=== PATIENT | male | born 1995 | race Caucasian/White ===

== ENCOUNTER 2017-09-14 07:21 | Observation (INO) | payer MEDICAID, OTHER ==
[2017-09-14] MEDS ORDERED: NS 1,000 ML IV ONE ×2 (08:09→10:10)
[2017-09-14] MEDS ORDERED: KETOROLAC 30 MG/1 ML SDV IVP ONE (08:09)
[2017-09-14] MEDS ORDERED: METOCLOPRAMIDE 10 MG/2 ML VIAL IVP ONE (08:09)
--- NOTE | 2017-09-14 08:14 | EDPHY ---
H & P Stated Complaint: abdominal pain Time Seen by Provider: 09/14/17 07:35 HPI/ROS: CHIEF COMPLAINT: Abdominal pain History by patient HISTORY OF PRESENT ILLNESS: 21-year-old boy presents complaining of severe upper abdominal pain which he describes as fullness or tightness in his epigastrium as if he is about to vomit but he cannot make himself vomit. It radiates into his back. It is not associated with any diarrhea. His last bowel movement was yesterday and was normal. He has no constipation. He denies any blood in his stool and states that he has stool has been tested in the past. He also had AH pylori test in the past which was negative. He belches but this does not seem to relieve the pain. There has been no associated fever. Symptoms seem to be worsened by eating and he can only tolerate a very bland diet and he cannot drink any carbonated beverages or eating any spicy food without exacerbating the pain. The pain is also worsened by motion or riding in the car or lying flat. He has had some version of the symptoms ongoing for over a year. He was treated with a course of antacids for several months by his PCP and his symptoms seemed to angela somewhat around April, 5 months ago, however last night the became severe again shortly after eating some cookies and drinking some milk. He tried taking Tums and this seemed to make it worse. He denies any testicular pain or penile discharge. Pain does not radiate into his groin. He denies any dysuria, urgency frequency or hematuria. Since the onset of the symptoms over a year ago the patient has drastically changed his diet and he can only eat a very bland foods. He has lost over 70 lb. Initially he thought this was related to change in diet and working in the produce section of a grocery store however he has not worked in about 5 months and he continues to lose weight. He is 1 class short of finishing high school. He denies any alcohol or marijuana use. He denies any street drug use. He does not smoke cigarettes. He says he has tried marijuana but this does not seem to help his pain. His mother has a history of kidney stones. REVIEW OF SYSTEMS: As in HPI, and all other systems reviewed and are negative Source: Patient, Family - Medical/Surgical History Other PMH: genetic kidney DX. IGA nephropathy, intermitant stomach pain since 2016. - Social History Smoking Status: Never smoked - Physical Exam Exam: General Appearance: Alert, pacing, somewhat uncomfortable appearing. Eyes: Pupils equal and round, extraocular movements intact, no pallor or injection. Mouth: Mucous membranes moist. Pharynx clear Respiratory: Normal, effort, lungs are clear to auscultation. No wheezes, rales or rhonchi. Cardiovascular: Regular rate and rhythm. S1, S2, no murmurs, gallops or rubs appreciated Gastrointestinal: bowel sounds decreased but present, Abdomen is soft and mildly diffusely tender, no masses Back: No CVA tenderness, no bony tenderness Neurological: Awake, alert and oriented x 3, no pronator drift, normal gait, no pronator drift Skin: Warm and dry, no rashes. Musculoskeletal: No deformities or tenderness. Extremities: full range of motion, no edema Psychiatric: Patient has normal affect, there is no agitation. Constitutional: Initial Vital Signs Temperature (C) 36.4 C 09/14/17 07:27 Heart Rate 105 H 09/14/17 07:27 Respiratory Rate 20 09/14/17 07:27 Blood Pressure 121/79 H 09/14/17 07:27 O2 Sat (%) 96 09/14/17 07:27 O2 Delivery Mode Room Air Allergies/Adverse Reactions: No Known Allergies Allergy (Unverified 09/14/17 07:33) Home Medications: Medication Instructions Recorded NK [No Known Home Meds] 09/14/17 Medical Decision Making - Diagnostics Imaging Results: Imaging Impressions Abdomen CT 09/14/17 08:42 Impression: Trace pericholecystic fluid. There is no bile duct dilatation. If there is further clinical concern regarding occult cholelithiasis, dedicated gallbladder sonography could be considered. Findings were discussed with Amanda Bowling MD at 9:39, on 09/14/2017. Abdomen Ultrasound 09/14/17 09:43 Impression: Cholelithiasis and secondary features consistent with acute cholecystitis, with no bile duct dilatation. Findings were discussed with Amanda Bowling MD at 11:51, on 09/14/2017. ED Course/Re-evaluation: 21-year-old boy presents with chronic abdominal pain related to eating and weight loss over the past year with some tenderness on exam. Patient was given IV fluids, Toradol, Reglan and Benadryl with improvement in his symptoms although he continued to remain diffusely tender on exam. Initial labs revealed a white count of 18.5. The rest of his blood work was unremarkable including normal lipase and LFTs. Given his symptoms and elevated white blood cell count and tachycardia I was concerned about significant intra abdominal infection or perforation therefore CT scan of the abdomen was obtained. CT revealed normal appendix and a small amount of fluid around the gallbladder. Radiologist recommended ultrasound. Ultrasound was performed which revealed multiple gallstones and evidence of acute cholecystitis. Patient was started on IV Unasyn. I discussed the case with Dr. Mitchell, [facility] who accepts the patient in transfer for admission at [facility]. I discussed with patient his father. They prefer to go by private car. - Data Points Laboratory Results: Laboratory Results 09/14/17 08:15 09/14/17 08:15 09/14/17 09/14/17 09/14/17 08:37 08:30 08:15 WBC RBC Hgb Hct MCV MCH MCHC RDW Plt Count MPV Neut % (Auto) Lymph % (Auto) [place] % (Auto) Eos % (Auto) Baso % (Auto) Nucleat RBC Rel Count Absolute Neuts (auto) Absolute Lymphs (auto) Absolute Monos (auto) Absolute Eos (auto) Absolute Basos (auto) Absolute Nucleated RBC Immature Gran % Immature Gran # Sodium 144 mEq/L mEq/L (135-145) Potassium 3.4 mEq/L L mEq/L (3.5-5.2) Chloride 102 mEq/L mEq/L (97-110) Carbon Dioxide 22 mEq/l mEq/l (22-31) Anion Gap 20 mEq/L H mEq/L (8-16) BUN 9 mg/dL mg/dL (7-23) Creatinine 0.8 mg/dL mg/dL (0.7-1.3) Estimated GFR > 60 Glucose 111 mg/dL H mg/dL (70-100) Calcium 10.5 mg/dL H mg/dL (8.5-10.4) Total Bilirubin 1.1 mg/dL mg/dL (0.1-1.4) Conjugated Bilirubin 0.4 mg/dL mg/dL (0.0-0.5) Unconjugated Bilirubin 0.7 mg/dL mg/dL (0.0-1.1) AST 31 IU/L IU/L (17-59) ALT 43 IU/L IU/L (21-72) Alkaline Phosphatase 75 IU/L IU/L (38-126) Total Protein 8.5 g/dL H g/dL (6.3-8.2) Albumin 4.8 g/dL g/dL (3.5-5.0) Lipase 94 IU/L IU/L (23-300) Urine Color YELLOW Urine Appearance CLEAR Urine pH 6.0 (5.0-7.5) Ur Specific [place] 1.025 (1.002-1.030) Urine Protein NEGATIVE (NEGATIVE) Urine Ketones 2+ H (NEGATIVE) Urine Blood TRACE H (NEGATIVE) Urine Nitrate NEGATIVE (NEGATIVE) Urine Bilirubin NEGATIVE (NEGATIVE) Urine Urobilinogen 0.2 EU EU (0.2-1.0) Ur Leukocyte Esterase NEGATIVE (NEGATIVE) Urine RBC 5-10 /hpf H /hpf (0-3) Urine WBC 3-5 /hpf H /hpf (0-3) Ur Epithelial Cells TRACE /lpf /lpf (NONE-1+) Amorphous Sediment 1+ /hpf /hpf (NONE-1+) Urine Bacteria 1+ /hpf H /hpf (NONE SEEN) Hyaline Casts 0-1 /lpf /lpf (0-1) Urine Mucus 3+ /lpf H /lpf (NONE-1+) Urine Yeast TRACE /hpf H /hpf (NONE SEEN) Urine Glucose NEGATIVE (NEGATIVE) C.trachomatis RNA (TMA) Pending N.gonorrhoeae RNA (TMA) Pending 09/14/17 08:15 WBC 18.50 10^3/uL H 10^3/uL (3.80-9.50) RBC 5.32 10^6/uL 10^6/uL (4.40-6.38) Hgb 16.7 g/dL g/dL (13.7-17.5) Hct 46.9 % % (40.0-51.0) MCV 88.2 fL fL (81.5-99.8) MCH 31.4 pg pg (27.9-34.1) MCHC 35.6 g/dL g/dL (32.4-36.7) RDW 11.9 % % (11.5-15.2) Plt Count 282 10^3/uL 10^3/uL (150-400) MPV 9.8 fL fL (8.7-11.7) Neut % (Auto) 85.5 % H % (39.3-74.2) Lymph % (Auto) 9.5 % L % (15.0-45.0) [place] % (Auto) 4.3 % L % (4.5-13.0) Eos % (Auto) 0.1 % L % (0.6-7.6) Baso % (Auto) 0.2 % L % (0.3-1.7) Nucleat RBC Rel Count 0.0 % % (0.0-0.2) Absolute Neuts (auto) 15.80 10^3/uL H 10^3/uL (1.70-6.50) Absolute Lymphs (auto) 1.76 10^3/uL 10^3/uL (1.00-3.00) Absolute Monos (auto) 0.80 10^3/uL 10^3/uL (0.30-0.80) Absolute Eos (auto) 0.02 10^3/uL L 10^3/uL (0.03-0.40) Absolute Basos (auto) 0.04 10^3/uL 10^3/uL (0.02-0.10) Absolute Nucleated RBC 0.00 10^3/uL 10^3/uL (0-0.01) Immature Gran % 0.4 % % (0.0-1.1) Immature Gran # 0.08 10^3/uL 10^3/uL (0.00-0.10) Sodium Potassium Chloride Carbon Dioxide Anion Gap BUN Creatinine Estimated GFR Glucose Calcium Total Bilirubin Conjugated Bilirubin Unconjugated Bilirubin AST ALT Alkaline Phosphatase Total Protein Albumin Lipase Urine Color Urine Appearance Urine pH Ur Specific [place] Urine Protein Urine Ketones Urine Blood Urine Nitrate Urine Bilirubin Urine Urobilinogen Ur Leukocyte Esterase Urine RBC Urine WBC Ur Epithelial Cells Amorphous Sediment Urine Bacteria Hyaline Casts Urine Mucus Urine Yeast Urine Glucose C.trachomatis RNA (TMA) N.gonorrhoeae RNA (TMA) Medications Given: Discontinued Medications Diphenhydramine HCl (Benadryl Injection) 25 mg IVP EDNOW ONE Stop: 09/14/17 08:11 Last Admin: 09/14/17 08:28 Dose: 25 mg Sodium Chloride (Ns) 1,000 mls @ 0 mls/hr IV EDNOW ONE; Wide Open PRN Reason: Protocol Stop: 09/14/17 08:10 Last Admin: 09/14/17 08:25 Dose: 1,000 mls Sodium Chloride (Ns) 1,000 mls @ 0 mls/hr IV ONCE ONE PRN Reason: Wide Open Stop: 09/14/17 10:11 Last Admin: 09/14/17 10:11 Dose: 1,000 mls Ketorolac Tromethamine (Toradol) 15 mg IVP EDNOW ONE Stop: 09/14/17 08:10 Last Admin: 09/14/17 08:29 Dose: 15 mg Metoclopramide HCl (Reglan Injection) 10 mg IVP EDNOW ONE Stop: 09/14/17 08:10 Last Admin: 09/14/17 08:30 Dose: 10 mg Departure - Departure Disposition: [facility] Inpatient Acute Clinical Impression: Acute cholecystitis Condition: Fair Additional Instructions: Go directly to [facility] for direct admission to Dr. Allan Referrals: NONE *PRIMARY CARE P,. [Primary Care Provider] - As per Instructions
[2017-09-14 08:19] LABS: PLATELET COUNT 282 10^3/uL (150-400)
[2017-09-14] MEDS ORDERED: IOPAMIDOL (ISOVUE-300) 100 ML BTL ONE (08:56)
[2017-09-14] MEDS ORDERED: AMPICILLIN/SULBACTAM 3 GM in NS 100 ML IV ONE (11:53)
[2017-09-14] MEDS ORDERED: ZOLPIDEM TARTRATE 5 MG TAB PO PRN (15:19)
[2017-09-14] MEDS ORDERED: METOCLOPRAMIDE 10 MG/2 ML VIAL IVP PRN (15:19)
--- NOTE | 2017-09-14 15:24 | PDGENHP ---
History and Physical - Chief Complaint Abdominal pain - History of Present Illness This is a 21-year-old gentleman with 1 year history of recurrent postprandial abdominal pain. The patient has excessive irritation nausea and occasionally vomiting. He denies any significant biliary colic today but has had some in the past. The patient has had a low-fat diet for quite some time and lost 50 lb as a result. Family history significant for a sister and mother having cholecystitis with cholecystectomies. Patient has a history of IgA nephropathy otherwise has no medications no known drug allergies and no previous surgeries. His father was present for his interview and exam. Ultrasound at outpatient emergency room demonstrates cholelithiasis with impacted stones, leukocytosis of 18,000, carrie cholecystic fluid. CT scan also performed show similar findings. He has received Unasyn 3 g IV prior to arrival and is hemodynamically stable at this time History Information - Allergies/Home Medication List Allergies/Adverse Reactions: No Known Allergies Allergy (Unverified 09/14/17 07:33) Home Medications: NK [No Known Home Meds] 09/14/17 [Last Taken Unknown] I have personally reviewed and updated: family history, medical history, surgical history - Past Medical History Additional medical history: IgA nephropathy - Surgical History Reports: no pertinent surgical hx - Family History Additional family history: Hypertension in paternal grandparents. - Social History Smoking Status: Never smoked Alcohol Use: None Review of Systems Review of Systems: ROS: 10pt was reviewed & negative except for what was stated in HPI & below Constitutional: Reports: malaise, weight loss (50 lb in the last 1 year) EENMT: Reports: no symptoms Cardiac: Reports: no symptoms Respiratory: Reports: no symptoms Gastrointestinal: Reports: vomitting, abdominal pain, nausea Genitourinary: Reports: no symptoms Physical Exam Physical Exam: Alert oriented to person place and time Pupils 4 mm reactive. No scleral icterus Oropharynx moist without lesions good dentition Trachea midline no JVD No cervical or supraclavicular adenopathy Lungs clear bilaterally Heart regular rate and rhythm no murmurs Abdomen soft tender in the mid abdomen going to the right upper quadrant no scars no hepatosplenomegaly 2+ over 2+ 2+ radial and dorsalis pedis pulses Normal skin turgor and tone no rashes Normal affect Temp Pulse Resp BP Pulse Ox 36.6 C 90 16 108/60 97 09/14/17 15:16 09/14/17 15:16 09/14/17 15:16 09/14/17 15:16 09/14/17 15:16 Lab Data & Imaging Review 09/14/17 08:15 09/14/17 08:15 WBC 18.50 10^3/uL (3.80-9.50) H 09/14/17 08:15 RBC 5.32 10^6/uL (4.40-6.38) 09/14/17 08:15 Hgb 16.7 g/dL (13.7-17.5) 09/14/17 08:15 Hct 46.9 % (40.0-51.0) 09/14/17 08:15 MCV 88.2 fL (81.5-99.8) 09/14/17 08:15 MCH 31.4 pg (27.9-34.1) 09/14/17 08:15 MCHC 35.6 g/dL (32.4-36.7) 09/14/17 08:15 RDW 11.9 % (11.5-15.2) 09/14/17 08:15 Plt Count 282 10^3/uL (150-400) 09/14/17 08:15 MPV 9.8 fL (8.7-11.7) 09/14/17 08:15 Neut % (Auto) 85.5 % (39.3-74.2) H 09/14/17 08:15 Lymph % (Auto) 9.5 % (15.0-45.0) L 09/14/17 08:15 [place] % (Auto) 4.3 % (4.5-13.0) L 09/14/17 08:15 Eos % (Auto) 0.1 % (0.6-7.6) L 09/14/17 08:15 Baso % (Auto) 0.2 % (0.3-1.7) L 09/14/17 08:15 Nucleat RBC Rel Count 0.0 % (0.0-0.2) 09/14/17 08:15 Absolute Neuts (auto) 15.80 10^3/uL (1.70-6.50) H 09/14/17 08:15 Absolute Lymphs (auto) 1.76 10^3/uL (1.00-3.00) 09/14/17 08:15 Absolute Monos (auto) 0.80 10^3/uL (0.30-0.80) 09/14/17 08:15 Absolute Eos (auto) 0.02 10^3/uL (0.03-0.40) L 09/14/17 08:15 Absolute Basos (auto) 0.04 10^3/uL (0.02-0.10) 09/14/17 08:15 Absolute Nucleated RBC 0.00 10^3/uL (0-0.01) 09/14/17 08:15 Immature Gran % 0.4 % (0.0-1.1) 09/14/17 08:15 Immature Gran # 0.08 10^3/uL (0.00-0.10) 09/14/17 08:15 Sodium 144 mEq/L (135-145) 09/14/17 08:15 Potassium 3.4 mEq/L (3.5-5.2) L 09/14/17 08:15 Chloride 102 mEq/L (97-110) 09/14/17 08:15 Carbon Dioxide 22 mEq/l (22-31) 09/14/17 08:15 Anion Gap 20 mEq/L (8-16) H 09/14/17 08:15 BUN 9 mg/dL (7-23) 09/14/17 08:15 Creatinine 0.8 mg/dL (0.7-1.3) 09/14/17 08:15 Estimated GFR > 60 09/14/17 08:15 Glucose 111 mg/dL (70-100) H 09/14/17 08:15 Calcium 10.5 mg/dL (8.5-10.4) H 09/14/17 08:15 Total Bilirubin 1.1 mg/dL (0.1-1.4) 09/14/17 08:15 Conjugated Bilirubin 0.4 mg/dL (0.0-0.5) 09/14/17 08:15 Unconjugated Bilirubin 0.7 mg/dL (0.0-1.1) 09/14/17 08:15 AST 31 IU/L (17-59) 09/14/17 08:15 ALT 43 IU/L (21-72) 09/14/17 08:15 Alkaline Phosphatase 75 IU/L (38-126) 09/14/17 08:15 Total Protein 8.5 g/dL (6.3-8.2) H 09/14/17 08:15 Albumin 4.8 g/dL (3.5-5.0) 09/14/17 08:15 Lipase 94 IU/L (23-300) 09/14/17 08:15 Urine Color YELLOW 09/14/17 08:37 Urine Appearance CLEAR 09/14/17 08:37 Urine pH 6.0 (5.0-7.5) 09/14/17 08:37 Ur Specific [place] 1.025 (1.002-1.030) 09/14/17 08:37 Urine Protein NEGATIVE (NEGATIVE) 09/14/17 08:37 Urine Ketones 2+ (NEGATIVE) H 09/14/17 08:37 Urine Blood TRACE (NEGATIVE) H 09/14/17 08:37 Urine Nitrate NEGATIVE (NEGATIVE) 09/14/17 08:37 Urine Bilirubin NEGATIVE (NEGATIVE) 09/14/17 08:37 Urine Urobilinogen 0.2 EU (0.2-1.0) 09/14/17 08:37 Ur Leukocyte Esterase NEGATIVE (NEGATIVE) 09/14/17 08:37 Urine RBC 5-10 /hpf (0-3) H 09/14/17 08:37 Urine WBC 3-5 /hpf (0-3) H 09/14/17 08:37 Ur Epithelial Cells TRACE /lpf (NONE-1+) 09/14/17 08:37 Amorphous Sediment 1+ /hpf (NONE-1+) 09/14/17 08:37 Urine Bacteria 1+ /hpf (NONE SEEN) H 09/14/17 08:37 Hyaline Casts 0-1 /lpf (0-1) 09/14/17 08:37 Urine Mucus 3+ /lpf (NONE-1+) H 09/14/17 08:37 Urine Yeast TRACE /hpf (NONE SEEN) H 09/14/17 08:37 Urine Glucose NEGATIVE (NEGATIVE) 09/14/17 08:37 Imaging Review: Images personally reviewed on [facility] PACS system agree with findings of acute cholecystitis Imaging Impressions Abdomen CT 09/14/17 08:42 Impression: Trace pericholecystic fluid. There is no bile duct dilatation. If there is further clinical concern regarding occult cholelithiasis, dedicated gallbladder sonography could be considered. Findings were discussed with Amanda Bowling MD at 9:39, on 09/14/2017. Abdomen Ultrasound 09/14/17 09:43 Impression: Cholelithiasis and secondary features consistent with acute cholecystitis, with no bile duct dilatation. Findings were discussed with Amanda Bowling MD at 11:51, on 09/14/2017. Assessment & Plan Assessment: Acute cholecystitis (Acute) Plan: Laparoscopic cholecystectomy. The risks benefits and alternatives have been outlined to the patient and his father. All questions were addressed. Verbal confirmation of understanding of concerns and risks and benefits of surgery prior to written consent. Plan on surgery later on this evening. No need for repeat antibiotics unless purulence noted intraoperatively. Anticipate discharge in 24 hr.
[2017-09-14] MEDS ORDERED: LR 1,000 ML IV SCH (15:30)
--- NOTE | 2017-09-14 17:47 | PDANEPAE ---
ANE Past Medical History - Pulmonary History Hx Sleep Apnea: No Sleep Apnea Screening Result - Last Documented: Negative - Endocrine History Hx Diabetes: No - Chronic Pain History Chronic Pain: Yes ANE Review of Systems Review of Systems: ANE Patient History - Allergies Allergies/Adverse Reactions: No Known Allergies Allergy (Unverified 09/14/17 07:33) - Home Medications Home Medications: NK [No Known Home Meds] 09/14/17 [Last Taken Unknown] - NPO status NPO Since - Liquids (Date): 09/14/17 NPO Since - Liquids (Time): 04:00 NPO Since - Solids (Date): 09/13/17 NPO Since - Solids (Time): 12:00 - Smoking Hx Smoking Status: Never smoked - Alcohol Use Alcohol Use: None ANE Labs/Vital Signs - Labs Result Diagrams: 09/14/17 08:15 09/14/17 08:15 - Vital Signs Blood Pressure: 108/60 Heart Rate: 90 Respiratory Rate: 16 O2 Sat (%): 97 Height: 177.8 cm Weight: 70.4 kg ANE Physical Exam - Airway Neck exam: FROM Mallampati Score: Class 2 Mouth exam: normal dental/mouth exam - Pulmonary Pulmonary: no respiratory distress - Cardiovascular Cardiovascular: regular rate and rhythym - ASA Status ASA Status: II ANE Anesthesia Plan Anesthesia Plan: general endotracheal anesthesia
[2017-09-14] MEDS ORDERED: fentaNYL 250 MCG/5 ML INJ ONE (17:51)
[2017-09-14] MEDS ORDERED: METOCLOPRAMIDE 10 MG/2 ML VIAL ONE (17:52)
[2017-09-14] MEDS ORDERED: LIDOCAINE 2% 100 MG/5 ML SYR ONE (17:52)
[2017-09-14] MEDS ORDERED: DEXAMETHASONE 4 MG/ML VIAL ONE ×2 (17:52)
[2017-09-14] MEDS ORDERED: PROPOFOL 200 MG/20 ML VIAL ONE (17:52)
[2017-09-14] MEDS ORDERED: ROCURONIUM 50 MG/5 ML VIAL ONE (17:52)
[2017-09-14] MEDS ORDERED: LIDOCAINE 1% 300 MG/30 ML SDV ONE (17:57)
[2017-09-14] MEDS ORDERED: BUPIVACAINE 0.5% 30 ML SDV ONE (17:57)
--- NOTE | 2017-09-14 19:01 | POSTOPPROG ---
Post Op Note Date of Operation: 09/14/17 Surgeon: Lobito Allan Clock Maker: Rosalina SYED Anesthesiologist: Kristal Hall Anesthesia: GET(General Endotracheal) Pre-op Diagnosis: Acute cholecystitis Post-op Diagnosis: same Procedure: Laparoscopic cholecystectomy Findings: acutely inflammed gallbladder Inf/Abcess present in the surg proc area at time of surgery?: Yes Depth: Organ Space EBL: Minimal Specimen(s): gallbladder to permanent pathology
[2017-09-14] MEDS ORDERED: ONDANSETRON 4 MG/2 ML VIAL IVP PRN (19:06)
[2017-09-14] MEDS ORDERED: MEPERIDINE 25 MG/0.5 ML AMP IVP PRN (19:06)
[2017-09-14] MEDS ORDERED: NALOXONE HCL 0.4 MG/ML INJ IVP PRN (19:06)
[2017-09-14] MEDS ORDERED: fentaNYL 100 MCG/2 ML INJ IVP PRN (19:06)
[2017-09-14] MEDS ORDERED: ALBUTEROL 3 ML DEYVIAL IH PRN (19:06)
--- NOTE | 2017-09-14 19:07 | POSTANESTH ---
Post Anesthetic Evaluation Cardiovascular Status: Similar to Pre-Op Cond Respiratory Status: Similar to Pre-op Cond. Level of Consciousness/Mental Status: Mildly Sleepy, Arousable Pain Control: Adequate, Prn Tx Ordered Nausea/Vomiting Control: Adequate, Prn Tx Ordered Complications Possibly Related to Anesthesia: None Noted
[2017-09-15] MEDS: HYDROCODONE/APAP 5/325 TAB PO PRN ×2 (05:48→10:12)
--- NOTE | 2017-09-15 06:23 | GOP ---
[f rep st] OPERATIVE REPORT DATE OF OPERATION: SURGEON: Lobito Allan MD [employer] DEVELOPER: Rosalina Membreno, CONICAL MIXER ANESTHESIA: General endotracheal anesthesia. ANESTHESIOLOGIST: Terrence Hall MD PREOPERATIVE DIAGNOSIS: Acute cholecystitis. POSTOPERATIVE DIAGNOSIS: Acute cholecystitis. PROCEDURE PERFORMED: Laparoscopic cholecystectomy. FINDINGS: SPECIMENS: Gallbladder to permanent pathology. ESTIMATED BLOOD LOSS: Less than 10 mL. INDICATIONS: This is a 21-year-old gentleman who presents to the hospital with acute cholecystitis. Symptoms have been ongoing for over 1 year. The patient had ultrasound and CAT scan showing pericho lecystic fluid, inflamed gallbladder, stones in the neck with hydrops. DESCRIPTION OF PROCEDURE: The patient was brought to the operating room. After induction of endotra cheal anesthesia in supine position, the abdomen was prepped chlorhexidine and draped sterilely. Vazquez e-out procedure was then performed according to institutional standards. Local anesthetic was infuse d in skin and subcutaneous tissues of the trocar site. Local anesthetic was infused in skin and subc utaneous tissues. The abdomen was approached through supraumbilical trocar placement open. The abdo men was insufflated to 15 TOR with carbon dioxide. Working trocars were placed in the subxiphoid and right subcostal areas under direct visualization. The gallbladder was brought to the field of disse ction. The gallbladder is slightly hydropic. There was bilious fluid surrounding it and it is acute ly inflamed. Electrocautery was used to take off the perineum, clearly identifying the critical view of safety with the cystic duct and cystic artery clearly delineated in the triangle of [place]. These were triply clipped and ligated. The gallbladder was taken off the gallbladder bed using electrocau keena. Hemostasis was assured. The gallbladder was placed in a pouch and brought out through the umb ilical incision. The working trocars were removed. There was no sign of bleeding. The abdomen was deflated. The fascia was reapproximated to the level of the umbilicus and all 4 port s were approximated at the skin level using 4-0 Monocryl. Dermabond was applied. The patient awaken ed. He was extubated, taken to recovery room in stable condition. No immediate complications. COMPLICATIONS: No complications. /[id number]/MODL
[2017-09-15 07:37] VITALS: BP 100/55
--- NOTE | 2017-09-15 09:49 | ASMTCMCOM ---
CM Note CM Note Notes: 21yr old male admitted for acute cholecystitis. Hx of abdominal pain. To have surgery. No discharge needs anticipated. Date Signed: 09/15/2017 09:48 AM Electronically Signed By:Misty Cervantes LCSW
--- NOTE | 2017-09-15 12:41 | ASMTLACE ---
LACE Length of stay for Answers: 1 day current admission Acuity / Level of Answers: Yes Care: Did the patient have an inpatient admission? Comorbidities - select Answers: Other Notes: Acute cholecystitis all that apply # of Emergency department Answers: 1-2 visits in the last 6 months Score: 6 Date Signed: 09/15/2017 12:40 PM Electronically Signed By:Misty Cervantes LCSW
[2017-09-16 12:43] LABS: GC AMPLIFICATION GENPROBE NEGATIVE (NEGATIVE)
--- NOTE | 2017-09-18 01:13 | PDDCSUM ---
Discharge Summary Discharge Summary: This is a 21-year-old gentleman presents with acute cholecystitis with symptoms occurred over the last year. He has significant weight loss. Admitting and discharge diagnosis acute cholecystitis principle procedure laparoscopic cholecystectomy 09/14/2017 Allergies: No known drug allergies Home medications: None Discharge medication oxycodone and ibuprofen Hospital course the patient was brought the operating room for urgent cholecystectomy on the day of admission. He underwent uncomplicated laparoscopic procedure. Postop day 1 was tolerating diet ambulatory dependently pain was well controlled with oral analgesics and after discussion with the patient father and him he was able to be discharged with appropriate home care instructions. He was given instructions follow up my office in I-II weeks call with any questions regarding the surgery such as but not limited to signs of infection from the wound drainage redness fever, inability to eat, pain not controlled by medication.
--- NOTE | 2017-09-18 13:41 | ASDISCHSUM ---
Discharge Information Plan Status:Home with No Needs Medically Cleared to Leave:09/15/2017 Discharge Date:09/15/2017 CM D/C Disposition:Home, Routine, Self-Care ADT D/C Disposition:Home, Routine, Self-Care Projected Discharge Date:09/15/2017 01:00 PM Transportation at D/C:Family Discharge Delay Reason: Follow-Up Date:09/15/2017 01:00 PM Discharge Slot: Final Diagnosis:Acute cholecystitis Placement Information Patient Contact Information Contact Name:CHANTE Relationship:Father Address:[facility] [address] Work Phone: City:[place] Alternate Phone: [facility]/Zip Code:[place] [address] Email: Financial Information Financial Class:HMO and PPO Plans Primary Plan Desc:[facility] Primary Plan Number:[id number] Secondary Plan Desc: Secondary Plan Number: Assessment Information LACE LACE Length of stay for Answers: 1 day current admission Acuity / Level of Answers: Yes Care: Did the patient have an inpatient admission? Comorbidities - select Answers: Other Notes: Acute cholecystitis all that apply # of Emergency department Answers: 1-2 visits in the last 6 months Score: 6 Date Signed: 09/15/2017 12:40 PM Electronically Signed By:Misty Cervantes LCSW [facility] CM Progress Note CM Note CM Note Notes: 21yr old male admitted for acute cholecystitis. Hx of abdominal pain. To have surgery. No discharge needs anticipated. Date Signed: 09/15/2017 09:48 AM Electronically Signed By:Misty Cervantes LCSW Case Management Discharge Plan Note Case Management Discharge Discharge Order Complete? Answers: Yes Patient to Obtain Answers: via Family Medications Transportation Arranged Answers: Family/Friends Transport will Pick (Date 09/15/2017 01:00 PM & Time) Family Notified Answers: Yes Notes: Family to transport Discharge Comments Notes: Patient has been discharged home. No needs. Date Signed: 09/15/2017 12:39 PM Electronically Signed By:Misty Cervantes LCSW Intervention Information
== END 2017-09-15 12:25 | disposition home or self-care (01) ==
LOC: CED 07:21 → CEDHOLD 12:04 → INTOOBSV 12:04 → F3N 14:18
PROVIDERS: ADMIT Surgery; ATTEND Surgery
PROC: 0FT44ZZ Resection of Gallbladder, Percutaneous Endoscopic Approach (ICD-10-PCS; principal; 2017-09-14 18:00)
DX: K80.10 Calculus of gallbladder with chronic cholecystitis without obstruction (principal); N02.8 Recurrent and persistent hematuria with other morphologic changes; G89.29 Other chronic pain
CPT/HCPCS: 47562; 74177; 76705; G0378; 80048-PO; 80076-PO; 81003-PO; 81015-PO; 83690-PO; 85025-PO; J0295; J1100; J1200; J1885; J2001; J2704; J2765; J3010; Q9967